=== PATIENT | female | born 1970 | race Caucasian/White ===

== ENCOUNTER 2019-01-11 07:34 | Day surgery (SDC) | payer BC ==
--- NOTE | 2019-01-11 07:25 | PCM.PREANE ---
Preanesthetic Assessment - Anesthesia/Transfusion/Family Hx Anesthesia History: Prior Anesthesia Reaction Type of Anesthesia Reaction: Excessive Nausea/Vomiting Family History of Anesthesia Reaction: No Transfusion History: No Prior Transfusion(s) Intubation History: Unknown - Review of Systems General: No Symptoms Pulmonary: No Symptoms (Smoking History:0.5 packs/day times 15 years. ETOH:rarely) Cardiovascular: No Symptoms Gastrointestinal: No Symptoms (GERD) Neurological: No Symptoms (History of lower back pain), Headache (History of cluster headaches), Numbness (right toes on occasion), Tingling (left hand CTS) Other: Reports: None (History of right nephrectomy), Easy Bruising, Anxiety - Physical Assessment NPO Status Date: 01/10/19 NPO Status Time: 19:00 Vital Signs: HR: BP: Resp: Temp: Sat: Height: 1.51 m Weight: 51 kg ASA Class: 2 Mental Status: Alert & Oriented x3 Airway Class: Mallampati = 2 Dentition: Reports: Normal Dentition, Caries Thyro-Mental Finger Breadths: 3 Mouth Opening Finger Breadths: 3 ROM/Head Extension: Full Lungs: Clear to Auscultation, Normal Respiratory Effort Cardiovascular: Regular Rate, Regular Rhythm, No Murmurs - Lab Values: Laboratory Last Values MRSA (PCR) Negative 01/04/19 11:50 Above lab noted and reviewed, and within acceptable ranges to proceed with scheduled procedure. - Allergies Allergies/Adverse Reactions: Allergies Allergy/AdvReac Type Severity Reaction Status Date / Time erythromycin base Allergy Nausea and Verified 01/10/19 15:17 Vomiting hydrocodone Allergy Rash Verified 01/10/19 15:17 Penicillins Allergy Rash Verified 01/10/19 15:17 - Anesthesia Plan Pre-Op Medication Ordered: None - Acknowledgements Anesthesia Type Planned: MAC Pt an Appropriate Candidate for the Planned Anesthesia: Yes Alternatives and Risks of Anesthesia Discussed w Pt/Guardian: Yes Pt/Guardian Understands and Agrees with Anesthesia Plan: Yes PreAnesthesia Questionnaire HEENT History: Reports: None Cardiovascular History: Reports: None Respiratory History: Reports: None Gastrointestinal History: Reports: GERD Genitourinary History: Reports: Other (See Below) Other Genitourinary History: right nephrectomy, breast reduction ORDNANCE ARTIFICER History: Reports: None Neurological History: Reports: None Psychiatric History: Reports: Anxiety Endocrine/Metabolic History: Reports: None Hematologic History: Reports: None Immunologic History: Reports: None Oncologic (Cancer) History: Reports: None Dermatologic History: Reports: None - Past Surgical History Head Surgeries/Procedures: Reports: None HEENT Surgical History: Reports: Oral Surgery Cardiovascular Surgical History: Reports: None Respiratory Surgical History: Reports: None GI Surgical History: Reports: None Female Surgical History: Reports: Tubal Ligation Male Surgical History: Reports: None Endocrine Surgical History: Reports: None Neurological Surgical History: Reports: None Musculoskeletal Surgical History: Reports: Carpal Tunnel Oncologic Surgical History: Reports: None Dermatological Surgical History: Reports: None - SUBSTANCE USE Smoking Status *Q: Current Every Day Smoker Recreational Drug Use History: No - HOME MEDS Home Medications: Home Meds Cholecalciferol (Vitamin D3) [Vitamin D3] 1,000 unit PO DAILY 01/10/19 [History] Cyclobenzaprine [Flexeril] 10 mg PO TID PRN 01/10/19 [History] Escitalopram Oxalate 10 mg PO DAILY 01/10/19 [History] Ferrous Sulfate [Iron] 325 mg PO DAILY 01/10/19 [History] Magnesium 250 mg PO DAILY 01/10/19 [History] Pantoprazole Sodium [Protonix] 40 mg PO DAILY 01/10/19 [History] traMADol [Ultram] 1 - 2 tab PO Q6H PRN #15 tablet 01/11/19 [Rx] - CURRENT (IN HOUSE) MEDS Current Meds: Current Medications Lactated Ringer's (Ringers, Lactated) 1,000 mls @ 125 mls/hr IV ASDIRECTED JARRELL Stop: 01/11/19 23:00 Influenza Virus Vaccine (Fluzone Quad Syringe) 60 mcg IM .ONCE ONE Stop: 01/11/19 09:01 Lidocaine/Sodium Bicarbonate (Buffered Lidocaine 1% In Ns 8.4%) 0.25 ml IDERM ONETIME PRN PRN Reason: Prior to IV Start Stop: 01/11/19 18:00 Scopolamine (Transderm-Scop) 1.5 mg TRDERM ONETIME ONE Stop: 01/11/19 07:21 Sodium Chloride (Saline Flush) 10 ml FLUSH ASDIRECTED PRN PRN Reason: Keep Vein Open Stop: 01/11/19 18:00 Discontinued Medications Influenza Virus Vaccine (Pharmacy To Dose - Influenza Vaccine) 1 each IM ONETIME JARRELL
[~2019-01-11 07:34] MED LIST: Lactated Ringers 1,000 ML IV SCH; Lidocaine 1%/Sod Bicarbonate in NS 8.4% 1 ML Syringe IDERM PRN; Scopolamine 1.5 MG Transdermal Patch TRDERM ONE; Sodium Chloride 0.9% 10 ML Syringe FLUSH PRN
[2019-01-11] MEDS ORDERED: Propofol 200 MG/20 ML SDV ONE (08:08)
[2019-01-11] MEDS ORDERED: Ondansetron 4 MG/2 ML SDV ONE (08:08)
[2019-01-11] MEDS ORDERED: Lidocaine 1% 6 ML ONE (08:08)
[2019-01-11] MEDS ORDERED: Dexamethasone 4 MG/ML 5 ML MDV ONE (08:08)
[2019-01-11] MEDS ORDERED: fentaNYL 100 MCG/2 ML SDV ONE (08:08)
[2019-01-11] MEDS ORDERED: Midazolam 1 MG/ML 2 ML SDV ONE (08:09)
[2019-01-11] MEDS ORDERED: Bupivacaine 0.25% 10 ML SDV ONE (08:32)
[2019-01-11] MEDS ORDERED: Lidocaine 1% 30 ML SDV ONE (08:32)
[2019-01-11] MEDS ORDERED: FLU Vacc QS2019-20(6MOS+)/PF 60 MCG/0.5 ML SYRINGE IM ONE ×2 (09:00→09:39)
[2019-01-11] MEDS ORDERED: Ondansetron 4 MG/2 ML SDV IVPUSH PRN (09:04)
[2019-01-11] MEDS ORDERED: fentaNYL 100 MCG/2 ML SDV IVPUSH PRN (09:04)
--- NOTE | 2019-01-11 09:39 | PCM48HPAN ---
Post Anesthesia Note - EVALUATION WITHIN 48HRS OF ANESTHETIC Vital Signs in Normal Range: Yes Patient Participated in Evaluation: Yes Respiratory Function Stable: Yes Airway Patent: Yes Cardiovascular Function Stable: Yes Hydration Status Stable: Yes Pain Control Satisfactory: Yes Nausea and Vomiting Control Satisfactory: Yes Mental Status Recovered: Yes Vital Signs: Last Vital Signs Temp 97.7f 01/11/19933 Pulse 64 01/11/19933 Resp 12 01/11/19933 BP 100/67 01/11/19933 Pulse Ox 95 01/11/19933
--- NOTE | 2019-01-15 11:51 | PCM.OPNOTE ---
- General Post-Op/Procedure Note Date of Surgery/Procedure: 01/11/19 Operative Procedure(s): right carpal tunnel release Pre Op Diagnosis: right median nerve compression neuropathy Post-Op Diagnosis: Same Anesthesia Technique: Local, MAC Primary Surgeon: José Mckeon Anesthesia Provider: Cleopatra Francisco Scoop Driver: Renetta Shaw in mLs: 5 Complications: None Condition: Good
--- NOTE | 2019-01-15 12:34 | OR ---
DATE OF OPERATION: 01/11/2019 SURGEON: José Mckeon MD OPERATION PERFORMED: Right carpal tunnel release. PREOPERATIVE DIAGNOSIS: Right median nerve compression neuropathy. POSTOPERATIVE DIAGNOSIS: Right median nerve compression neuropathy. ANESTHESIA: Local MAC. COMPLICATIONS: None. CONDITION: Stable. DESCRIPTION OF PROCEDURE: The patient was identified in the preop holding area. Proper site was marked and identified by the surgeon. The patient was taken back to the operating theater where after adequate anesthesia, the patient's right upper extremity was sterilely prepped and draped in the usual sterile fashion. OR time-out was performed. The patient did not receive antibiotics and it is not indicated for soft tissue hand procedure. At this time, the right upper extremity was exsanguinated and an Esmarch was used as a tourniquet on the forearm. At this time, using 1% lidocaine without epinephrine and 0.25% Marcaine without epinephrine, the palmar cutaneous branch of the median nerve was anesthetized and then the incisional site was anesthetized using Yeung cardinal line and ulnar border of the fourth digit as reference. Once this had set up, an incision was made. Blunt dissection was taken down to the palmar cutaneous fascia. Palmar cutaneous fascia was incised with a [place] blade. At this time, the transverse carpal ligament was identified. A small rent was made in the transverse carpal ligament with a [place] blade under direct visualization. Resection of the transverse carpal ligament was done distally using tenotomy scissors making sure to stop short of the palmar arch. At this time, attention was turned proximally after it was found to be adequately released. Using the tenotomy scissors keeping the tips ulnar to protect the palmar cutaneous branch of the median nerve, the superficial forearm fascia as well as the transverse carpal ligament were resected proximally. It was found to be adequate release both proximally and distally. At this time, adequate saline was irrigated through the wound. 4-0 nylon sutures were used closure of the skin. The patient was placed in a sterile soft dressing and sent to PACU in stable condition. ESTIMATED BLOOD LOSS: MMODAL /[id number]
== END 2019-01-11 10:17 | disposition home or self-care (01) ==
LOC: JD.SDS 07:34
PROVIDERS: ATTEND Orthopaedic Surgery
DX: G56.11 Other lesions of median nerve, right upper limb (principal); K21.9 Gastro-esophageal reflux disease without esophagitis; M17.11 Unilateral primary osteoarthritis, right knee; F17.210 Nicotine dependence, cigarettes, uncomplicated; Z88.0 Allergy status to penicillin; Z88.5 Allergy status to narcotic agent; Z88.1 Allergy status to other antibiotic agents; Z79.899 Other long term (current) drug therapy
CPT/HCPCS: 64721; 87641; 90471; 90686; A9270; J1100; J2001; J2250; J2405; J2704; J3010; J3490; J7120; 01810; G0008

== ENCOUNTER 2020-01-15 06:52 | Day surgery (SDC) | payer BC ==
[2020-01-15] MEDS ORDERED: Sodium Chloride 0.9% 10 ML Syringe FLUSH PRN (07:00)
[2020-01-15] MEDS ORDERED: Lactated Ringers 1,000 ML IV SCH (07:00)
[2020-01-15] MEDS ORDERED: Lidocaine 1%/Sod Bicarbonate in NS 8.4% 1 ML Syringe IDERM PRN (07:00)
[2020-01-15] MEDS ORDERED: Lactated Ringers 1,000 ML ONE (07:13)
[2020-01-15] MEDS ORDERED: Ondansetron 4 MG/2 ML SDV ONE (07:13)
[2020-01-15] MEDS ORDERED: ceFAZolin 1 GM Vial ONE (07:13)
[2020-01-15] MEDS ORDERED: Rocuronium 50 MG/5 ML Vial ONE (07:13)
[2020-01-15] MEDS ORDERED: Lidocaine 1% 4 ML ONE (07:13)
[2020-01-15] MEDS ORDERED: Midazolam 1 MG/ML 2 ML SDV ONE (07:14)
[2020-01-15] MEDS ORDERED: fentaNYL 250 MCG/5 ML SDV ONE (07:14)
[2020-01-15] MEDS ORDERED: Propofol 200 MG/20 ML SDV ONE ×2 (07:14→08:06)
[2020-01-15] MEDS ORDERED: Dexamethasone 4 MG/ML 5 ML MDV ONE (07:15)
[2020-01-15] MEDS ORDERED: Ketorolac 30 MG/ML SDV ONE (07:15)
[2020-01-15] MEDS ORDERED: Sodium Chloride 0.9% 50 ML SDV ONE (07:18)
[2020-01-15] MEDS ORDERED: Lidocaine 1% with EPINEPHrine 1:100,000 20 ML MDV ONE (07:18)
[2020-01-15] MEDS ORDERED: Bupivacaine 0.5% 30 ML SDV ONE (07:18)
[2020-01-15] MEDS ORDERED: Scopolamine 1.5 MG Transdermal Patch TOP SCH (07:20)
[2020-01-15] MEDS ORDERED: Ketamine 500 mg/10 ML MDV ONE (08:06)
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
[2020-01-15] MEDS ORDERED: HYDROmorphone 0.5 MG/0.5 ML Syringe IVPUSH PRN (08:48)
[2020-01-15] MEDS ORDERED: Ondansetron 4 MG/2 ML SDV IVPUSH PRN (08:48)
[2020-01-15] MEDS ORDERED: fentaNYL 100 MCG/2 ML SDV IVPUSH PRN (08:48)
--- NOTE | 2020-01-15 09:08 | PCM.OPNOTE ---
- General Post-Op/Procedure Note Date of Surgery/Procedure: 01/15/20 Operative Procedure(s): Laparoscopically assisted vaginal hysterectomy with bilateral salpingectomy Findings: 1. Left Denhoff's gland duct cyst had resolved by the time of surgery. 2. Patient had minimal adhesions in the pelvis. She is status post tubal ligation. Possible evidence of discoloration possibly associated with endometriosis. The appendix was flaccid and noninflamed. Liver edge and gallbladder were normal and noninflamed. Ovaries were normal bilaterally and are left in place per patient desire. Pre Op Diagnosis: 1. Abnormal uterine bleeding. 2. Endometriosis. 3. Denhoff's gland duct cyst Post-Op Diagnosis: Same with resolution of Denhoff's gland duct cyst Anesthesia Technique: General ET Tube Other Anesthesia Type: Marcaine 0.5% - 8 cc. Lidocaine quarter percent with [id number] ccloc Primary Surgeon: Owen Rivera Secondary Surgeon: Danish Rogesr Anesthesia Provider: Faby Dash Dairy Farm Manager: Zakia Castro Reason Dairy Farm Manager Was Necessary: Retraction, assistance, patient safety, quality of care Pathology: Uterus, fallopian tubes and cervix in one specimen container Fluid Replacement, Intraop: 1,200 Output, Urine Amount: 50 EBL in mLs: 40 Drain/Tube Comments:: Indwelling bladder catheter during surgery only. Removed at the end of the case. Complications: None Condition: Good Free Text/Narrative:: Surgery duration: 43 minutes. The patient was taken to the operating room placed in supine position on the operating table. She received 2 g of Ancef preoperatively for infection prophylaxis. She had signed consent previously. After adequate anesthesia patient was placed in a dorsal lithotomy position. It should be noted she had sequential compression stockings in place for DVT prophylaxis. Indwelling bladder catheter was placed. This was done after adequate prepping and draping. The patient was placed in supine position and 3 laparoscopic port sites were developed. Marcaine 0.5% approximately 3-5 mL was injected at each site. Varies needle was placed and pneumoperitoneum was achieved with 3 L of CO2. Infraumbilical and 2 lateral port sites were developed. Under laparoscopic guidance the upper portion of the hysterectomy was performed. The right tube was elevated and mesosalpinx was crossclamped using the [employer] computerized cautery device. The round ligament was taken down to the broad ligament. At this time attention was turned to the left side and in the same was performed. Broad ligament was taken down to the area of the uterine vasculature. Uterine vasculature was developed in the usual fashion using the cautery system. Both uterine arteries were identified and developed. Vaginal approach was then undertaken. The patient was placed in the dorsal lithotomy position and a weighted speculum was placed in the vagina. The cervix was injected with lidocaine quarter percent with epinephrine 20 mL total. A full circumference incision was made through the epithelium around the cervix. Posterior cul-de-sac was entered without problems. The left uterosacral ligament and then the right uterosacral were taken down using the Enseal vessel closure system. The cardinal ligament and what remained of the uterine vascular vessels and cervical branches of the vessels were managed with the Enseal vessel closure system on each side. Anterior cul-de-sac was then entered and this is the uterus essentially was removed. Adequate development of the lower broad ligament, uterosacral and cardinal ligament had been accomplished from above. Uterus was then removed. At this point the uterus was completely removed and sent as specimen. The vaginal cuff was then The vagina was closed with a running locked suture of 0 Monocryl. Hemostasis was confirmed at this time and no bleeding was noted. Laparoscopy was then performed to ensure hemostasis. Pneumoperitoneum was reestablished and the laparoscope was placed. The pelvis was found to be hemostatically intact. There was no evidence of any bowel adhesion to the vaginal cuff area noted. The sleeves were removed under direct visualization and the upper sleeve was removed after reversal of the pneumoperitoneum. Each of these sites were closed with a single interrupted suture of 3-0 Monocryl. They were further approximated with Dermabond skin glue. At this point the patient was awakened from general endotracheal anesthesia. The Turner catheter had been removed by this time. She is discharged from the operating room in good condition.
--- NOTE | 2020-01-15 09:28 | PCM.POSTAN ---
POST ANESTHESIA ASSESSMENT - MENTAL STATUS Mental Status: Alert, Oriented - VITAL SIGNS Vital Signs: Last Vital Signs Temp 36.4 C 01/15/20 09:10 Pulse 71 01/15/20 07:00 Resp 8 L 01/15/20 09:20 BP 102/67 01/15/20 09:20 Pulse Ox 98 01/15/20 09:20 - RESPIRATORY Respiratory Status: Respiratory Rate WNL, Airway Patent, O2 Saturation Stable, Supplemental Oxygen - CARDIOVASCULAR CV Status: Pulse Rate WNL, Blood Pressure Stable - GASTROINTESTINAL GI Status: No Symptoms - PAIN Pain Score: 0 - POST OP HYDRATION Hydration Status: Adequate & Stable
[2020-01-15] MEDS ORDERED: traMADol 50 MG Tab PO PRN (10:28)
[2020-01-15] MEDS ORDERED: FLU VACC QS2020-21(6MOS UP)/PF 60 MCG/0.5 ML SYRINGE IM ONE (11:00)
--- NOTE | 2020-01-15 11:29 | PCM48HPAN ---
Post Anesthesia Note - EVALUATION WITHIN 48HRS OF ANESTHETIC Vital Signs in Normal Range: Yes Patient Participated in Evaluation: Yes Respiratory Function Stable: Yes Airway Patent: Yes Cardiovascular Function Stable: Yes Hydration Status Stable: Yes Pain Control Satisfactory: Yes Nausea and Vomiting Control Satisfactory: Yes Mental Status Recovered: Yes Vital Signs: Last Vital Signs
== END 2020-01-15 11:16 | disposition home or self-care (01) ==
LOC: JD.SDS 06:52
PROVIDERS: ATTEND Obstetrics & Gynecology
DX: N72 Inflammatory disease of cervix uteri (principal); N80.0 Endometriosis of uterus; N83.8 Other noninflammatory disorders of ovary, fallopian tube and broad ligament; F41.9 Anxiety disorder, unspecified; N60.19 Diffuse cystic mastopathy of unspecified breast; K21.9 Gastro-esophageal reflux disease without esophagitis; F17.210 Nicotine dependence, cigarettes, uncomplicated; N90.7 Vulvar cyst; Z88.1 Allergy status to other antibiotic agents; Z88.5 Allergy status to narcotic agent; Z88.0 Allergy status to penicillin; Z79.899 Other long term (current) drug therapy; Z98.890 Other specified postprocedural states
CPT/HCPCS: 36415; 58552; 80053; 81001; 81025; 85025; 86850; 86900; 86901; A9270; J0690; J1100; J1885; J2001; J2250; J2405; J2704; J3010; J3490; J7120; 00944